=== PATIENT | male | born 1965 | race American Indian/Alaskan Native ===

== ENCOUNTER 2018-02-28 06:26 | Day surgery (SDC) | payer OTHER ==
[2017-05-02 07:12] VITALS: BMI 29.1
--- NOTE | 2018-02-28 08:27 | CP.SDSHP ---
Same Day Surgery H & P - History Proposed Procedure: colonscopy Pre-Op Diagnosis: SEE NOTES - Previous Medical/Surgical History Cardiac: Hypertension Endocrine/Metabolic: Diabetes, Other Neuro: Seizure Disorder, Other Misc: Other Pain: 4.Moderate Pain - Allergies Allergies: Allergies No Known Allergies Allergy (Verified 05/09/16 06:36) - Physical Exam General Appearance: N Vital Signs: Vital Signs 02/28/18 06:49 Temperature 98.6 F Pulse Rate 80 Respiratory 20 Rate Blood Pressure 171/88 H O2 Sat by Pulse 97 Oximetry Mental Status: Alert & Oriented x3 Neuro: WNL Heart: Other Lungs: WNL GI: Other - {Optional Preform as Required} Breast: WNL Abdomen: Other Rectal: Other Integument: WNL : WNL Ortho: WNL ENT: WNL - Impression Pt. Evaluated Today:Candidate for Anesthesia & Procedure: Yes - Date & Time Time: 08:27 Short Stay Discharge - Short Stay Discharge Admitting Diagnosis/Reason for Visit: HEMORRHAGE OF ANUS AND RECTUM/DIARRHEA Disposition: HOME/ ROUTINE
[2018-02-28] MEDS ORDERED: Propofol 10 mg/ml Inj (20 ML) ONE ×2 (08:32→08:37)
[2018-02-28 08:33] VITALS: O2SAT 100
[2018-02-28] MEDS ORDERED: Phytonadione 10 mg/ml Inj (Adult) SC STA (08:41)
[2018-02-28 10:30] VITALS: BP 156/82; PULSE 83; RESP 18; TEMP 97.9
== END 2018-02-28 09:50 | disposition home or self-care (01) ==
LOC: C.ENDO 06:26
PROVIDERS: ATTEND Specialist
DX: D12.5 Benign neoplasm of sigmoid colon (principal); K52.9 Noninfective gastroenteritis and colitis, unspecified; K64.8 Other hemorrhoids; K64.4 Residual hemorrhoidal skin tags
CPT/HCPCS: 45388; 82948; 88305; J2001; J2704; J3430